=== PATIENT | female | born 1950 | race Caucasian/White ===

== ENCOUNTER → 2019-06-29 | Outpatient (CLI) | payer MEDICARE, OTHER ==
[~2019-06-29] MED LIST: ACETAMINOPHEN 325 MG TABLET PO PRN; CEFAZOLIN SODIUM 2 GM in DEXTROSE 5%-WATER 100 ML IV PRN; LACTATED RINGERS 1000 ML IV PRN; LIDOCAINE 0.5% INJ-PF (5 MG/ML) 50 ML SDV SUBCUT PRN; OXYCODONE HCL SR 10 MG TABLET PO PRN
[2019-06-29 09:09] VITALS: BP 134/69
[2019-06-29 11:02] LABS: ANION GAP 10 (5-19); BLOOD UREA NITROGEN 10 mg/dL (7-20); CALCIUM 9.6 mg/dL (8.4-10.2); CARBON DIOXIDE 29 mmol/L (22-30); CHLORIDE 102 mmol/L (98-107); GLUCOSE 119 mg/dL (75-110); POTASSIUM 3.8 mmol/L (3.6-5.0)
--- NOTE | 2019-06-29 18:15 | EKG REPORT ---
SEVERITY:- BORDERLINE ECG - SINUS RHYTHM BORDERLINE T WAVE ABNORMALITIES : Confirmed by: Asia Roldan 29-Jun-2019 18:13:56
== END ==
LOC: OD 08:32 → EDSTATUS 07-05 12:00
PROVIDERS: ATTEND Orthopaedic Surgery
DX: Z01.810 Encounter for preprocedural cardiovascular examination (principal); Z01.812 Encounter for preprocedural laboratory examination
CPT/HCPCS: 36415; 80048; 93005; 93010; J0690; J7060

== ENCOUNTER 2019-08-30 05:24 | Day surgery (SDC) | payer MEDICARE, OTHER ==
[2019-08-30] MEDS ORDERED: DEXAMETHASONE SOD PHOSPHATE INJ 4 MG/1 ML VIAL ONE (06:36)
[2019-08-30] MEDS ORDERED: ONDANSETRON HCL INJ/PF 4 MG/2 ML SDV ONE (06:36)
[2019-08-30] MEDS ORDERED: FENTANYL CITRATE INJ/PF 100 MCG/2 ML AMPUL ONE (06:36)
[2019-08-30] MEDS ORDERED: MIDAZOLAM 2 MG/2 ML INJ ONE (06:36)
[2019-08-30] MEDS ORDERED: PROPOFOL INJ 200 MG/20 ML VIAL IV ONE (06:37)
[2019-08-30] MEDS ORDERED: BUPIVACAINE HCL 0.5 % INJ/PF 30 ML SDV ONE (07:04)
[2019-08-30] MEDS ORDERED: LIDOCAINE 1% INJ-PF (10 MG/ML) 30 ML SDV ONE (07:04)
[2019-08-30] MEDS ORDERED: EPINEPHRINE INJ/PF 1 MG/1 ML AMPULE ONE (07:04)
[2019-08-30] MEDS ORDERED: KETOROLAC TROMETHAMINE INJ/PF 30 MG/1 ML SDV ONE ×2 (07:04→07:05)
[2019-08-30] MEDS ORDERED: TRIAMCINOLONE ACETONIDE INJ 40 MG/1 ML VIAL ONE (07:04)
[2019-08-30] MEDS ORDERED: DIPHENHYDRAMINE HCL 50 MG/ML VIAL IV PRN (07:45)
[2019-08-30] MEDS ORDERED: OXYCODONE-ACETAMINOPHEN 5-325 MG TABLET PO PRN ×2 (07:45)
[2019-08-30] MEDS ORDERED: PROMETHAZINE HCL INJ 25 MG/1 ML VIAL IV PRN (07:45)
[2019-08-30] MEDS ORDERED: FENTANYL CITRATE INJ/PF 100 MCG/2 ML AMPUL IV PRN ×3 (07:45)
[2019-08-30] MEDS ORDERED: MORPHINE SULFATE 10 MG/ML INJ IV PRN ×2 (07:45→08:53)
[2019-08-30] MEDS ORDERED: MEPERIDINE HCL/PF INJ 25 MG/1 ML DISP.SYRIN IV PRN (07:45)
--- NOTE | 2019-08-30 08:48 | Operative Report ---
Operative Report DATE OF SURGERY: 08/30/19 PREOPERATIVE DIAGNOSIS: Left knee patellar clunk POSTOPERATIVE DIAGNOSIS: Left knee patellar clunk OPERATION: Left knee arthroscopic scar resection, removal of patellar clunk nodule. SURGEON: MAHENDRA DE LEON JR ANESTHESIA: GA COMPLICATIONS: none ESTIMATED BLOOD LOSS: 5 cc PROCEDURE: Patient was brought to the operating suite and laid supine on operating table. They are placed under general anesthesia. Grams of Ancef were given preoperatively. The left lower extremity is prepped and draped in standard sterile fashion. A timeout was performed and the skin was marked. There was a prior scar to the patella and we utilized her previous scar for the lateral portal. Esmarch was used to exsanguinate the lower extremity prior to tourniquet inflation. Incision was made with an 11 blade laterally and the trocar was introduced. Immediately there was difficult T and identifying the patella due to a gross amount of scar tissue that had formed about the patella. We proceeded to enter the medial compartment where a spinal needle was placed to identify the medial portal. Upon appropriate placement of the needle a stab incision was made with an 11 blade and a shaver was introduced. We initially debrided scar anteriorly behind the patellar tendon to gain increased visualization as we made our way proximally and medially.. After careful and thorough debridement of the peripatellar scar tissue a large nodule was appreciated just superior to the patellar component. This was addressed with continued resection via suction shaver and then switching the portals to access the remaining amount. There was persistent nodular tissue remaining after the portal site switch and so a superior lateral portal was made to further aid in resection. After complete resection of the superior nodule we continued resecting the hypertrophic scar along the lateral border of the patella and into the lateral compartment. Upon completion final pictures were taken that demonstrated complete decompression of scar tissue surrounding the patellar component and appropriate position of the patellar component within the trochlear groove. The knee was evacuated of all irrigation fluid followed by closure of the medial and superior lateral portal site with 3-0 nylon portal stitches. After this the final portal was utilized to administer local anesthetic along with Kenalog. Final portal site was closed with a 3-0 nylon portal stitch and a sterile dressing was then placed. The patient was awakened from anesthesia and transferred to PACU in stable condition.
[2019-08-30] MEDS: FENTANYL CITRATE INJ/PF 100 MCG/2 ML AMPUL ONE ×2 (08:50→09:00)
[2019-08-30] MEDS ORDERED: OXYCODONE HCL IR 5 MG TABLET PO PRN ×2 (08:52)
[2019-08-30] MEDS ORDERED: TRAMADOL HCL 50 MG TABLET PO PRN (08:55)
[2019-08-30] MEDS ORDERED: DIPHENHYDRAMINE HCL 25 MG CAPSULE PO PRN (08:57)
[2019-08-30] MEDS ORDERED: PANTOPRAZOLE SODIUM 20 MG TABLET.DR PO PRN (08:57)
--- NOTE | 2019-08-30 08:57 | Discharge Summary ---
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 These included weightbearing as tolerated postoperatively with dressing change in 2 to 3 days. Until that time she is to reinforce the dressing as needed. After that she may change the dressing every day to every other day as needed. Additionally she may leave the dressing in place if tolerated until seen in the office by me in 10 days. She is to use a walking aid if there is any concern with stability or potential for fall, discussed with the patient preoperatively that she has a walker at home that she will use. Pain medication was prescribed preoperatively. Full weightbearing and range of motion is encouraged, will reevaluate the need for potential physical therapy at the postoperative appointment. Discharge Diet: As Tolerated Respiratory Treatments at Home: Deep Breathing/Coughing Discharge Activity: Activity As Tolerated, No Driving, Keep Legs Elevated, No tub bath, Walk Frequently Adaptive Devices on Discharge: Rolling Walker Report the Following to Your Physician Immediately: Shortness of Breath, Increase in Pain, Fever over 101 Degrees, Unusual Bleeding, Redness, Drainage- Yellow
[2019-08-30] MEDS ORDERED: ONDANSETRON 4 MG TAB.RAPDIS PO PRN (08:58)
[2019-08-30 10:41] VITALS: BP 127/72
[2019-08-30] MEDS ORDERED: ACETAMINOPHEN 325 MG TABLET PO SCH (14:00)
== END 2019-08-30 10:35 | disposition home or self-care (01) ==
LOC: OROUT 05:24
PROVIDERS: ATTEND Orthopaedic Surgery
DX: M25.862 Other specified joint disorders, left knee (principal); M25.562 Pain in left knee; M23.8X2 Other internal derangements of left knee; I10 Essential (primary) hypertension; Z96.653 Presence of artificial knee joint, bilateral; Z79.899 Other long term (current) drug therapy; Z79.1 Long term (current) use of non-steroidal anti-inflammatories (NSAID); Z87.891 Personal history of nicotine dependence; Z11.59 Encounter for screening for other viral diseases; Z03.818 Encounter for observation for suspected exposure to other biological agents ruled out
CPT/HCPCS: 36415; 84132; 01400; 29877; U0003; J2250; J3490 ×2; J0690; J1100; J0171; J3010; J1885; J2405; J3301; J7060; J2704; 1400; 87635